=== PATIENT | female | born 1955 | race Hispanic/Latino ===

== ENCOUNTER 2018-02-06 11:54 | Inpatient (IN) | payer OTHER, MEDICARE ==
[2018-02-06] MEDS ORDERED: DUONEB *Not for PRN Use IH ONE (13:42)
[2018-02-06] MEDS ORDERED: MORPHINE IV ONE (13:43)
[2018-02-06] MEDS ORDERED: ZOFRAN IV ONE (13:43)
[2018-02-06] MEDS ORDERED: NACL 0.9% 1000 ML 1,000 ML IV ONE (13:43)
--- NOTE | 2018-02-06 13:46 | Emergency Department Report ---
ED General Adult HPI - General Chief complaint: Medical Clearance Stated complaint: DIFFICULTY BREATHING Time Seen by Provider: 02/06/18 12:34 Source: patient, EMS Mode of arrival: Stretcher Limitations: No Limitations - History of Present Illness Initial comments: This is a 62-year-old female that has recently been admitted to a hospital for alcohol detoxification. Subsequently she was sent to the [facility] facility ([email or web address]). She was sent here because she does not have oxygen. In addition she does not have a nebulizer machine. She has been on chronic supplemental oxygen. She has also had chronic nebulized treatment for her COPD. She complains of shortness of breath and wheezing. She also states that about a half an hour before she was transferred she developed epigastric pain. The epigastric pain is crampy and nonradiating. She states that she does have some nausea. She has a history of previous resection of the small and large bowel she states for blockage and polyps. She's had a previous hysterectomy. She's had no recent surgery. She's had no recent infection. -: Gradual, minutes(s), hour(s) Location: abdomen Radiation: non-radiation Quality: other (cramping) Consistency: intermittent Improves with: none Worsens with: none Associated Symptoms: denies other symptoms, nausea/vomiting (nausea no vomiting) , shortness of breath ((wheezing)). denies: confusion, chest pain, cough, diaphoresis, headaches, loss of appetite, malaise, rash, syncope, weakness Treatments Prior to Arrival: none - Related Data Allergies Allergy/AdvReac Type Severity Reaction Status Date / Time No Known Allergies Allergy Unverified 02/06/18 12:32 ED Review of Systems ROS: Stated complaint: DIFFICULTY BREATHING Other details as noted in HPI Constitutional: denies: chills, fever Eyes: denies: eye pain, eye discharge, vision change ENT: denies: ear pain, throat pain Respiratory: wheezing. denies: cough Cardiovascular: denies: chest pain, palpitations Endocrine: no symptoms reported Gastrointestinal: abdominal pain, nausea. denies: vomiting, diarrhea Genitourinary: denies: urgency, dysuria, discharge Musculoskeletal: denies: back pain, joint swelling, arthralgia Skin: denies: rash, lesions Neurological: denies: headache, weakness, paresthesias Psychiatric: denies: anxiety, depression Hematological/Lymphatic: denies: easy bleeding, easy bruising ED Past Medical Hx - Past Medical History Previous Medical History?: Yes Hx Psychiatric Treatment: (ETOH abuse) Hx COPD: Yes Additional medical history: pancreatitis - Surgical History Past Surgical History?: Yes Additional Surgical History: hysterectomy, colon - Social History Smoking Status: Former Smoker Substance Use Type: None ED Physical Exam - General Limitations: No Limitations General appearance: alert, in no apparent distress - Head Head exam: Present: atraumatic, normocephalic - Eye Eye exam: Present: normal appearance, PERRL, EOMI. Absent: scleral icterus - ENT ENT exam: Present: mucous membranes moist - Neck Neck exam: Present: normal inspection - Respiratory Respiratory exam: Present: wheezes (bilateral), prolonged expiratory, other ( work of breathing is normal). Absent: normal lung sounds bilaterally, respiratory distress, accessory muscle use - Cardiovascular Cardiovascular Exam: Present: regular rate, normal rhythm. Absent: systolic murmur, diastolic murmur, rubs, gallop - GI/Abdominal GI/Abdominal exam: Present: soft, tenderness (epigastric), normal bowel sounds. Absent: distended, guarding, rebound, rigid, organomegaly, mass, bruit, pulsatile mass, hernia - Extremities Exam Extremities exam: Present: normal inspection, normal capillary refill. Absent: calf tenderness - Back Exam Back exam: Present: normal inspection - Neurological Exam Neurological exam: Present: alert, oriented X3, CN II-XII intact. Absent: motor sensory deficit - Psychiatric Psychiatric exam: Present: normal affect, normal mood - Skin Skin exam: Present: warm, dry, intact, normal color. Absent: rash ED Course Vital Signs 02/06/18 02/06/18 02/06/18 12:12 12:18 14:20 Temperature 98.6 F Pulse Rate 95 H 72 Pulse Rate [ 89 Posterior] Respiratory 20 18 Rate Respiratory 16 Rate [Posterior ] Blood Pressure 145/108 Blood Pressure 146/108 [Right] O2 Sat by Pulse 92 95 Oximetry 02/06/18 14:41 Temperature Pulse Rate Pulse Rate [ 99 H Posterior] Respiratory Rate Respiratory 19 Rate [Posterior ] Blood Pressure Blood Pressure [Right] O2 Sat by Pulse Oximetry - Reevaluation(s) Reevaluation #1: The patient was found to have a PO2 under 60. There was a mildly elevated PCO2 of 46.9. She was placed on 2 L of oxygen by me. I found her on 4 L apparently placed by others. 2 L should suffice actually. We will check her pulse oximetry. She will receive a DuoNeb. I'll investigate her abdominal complaints further. She will likely require overnight admission to the hospitalist service for a COPD exacerbation. 02/06/18 14:31 02/06/18 14:33 Reevaluation #2: CT of the abdomen and pelvis double contrast protocol is still pending. The patient's abdominal exam was benign. Her labs are likewise benign. The patient will be admitted by Dr. Mayers to the hospitalist service for further evaluation. She was given a tablet placed on supplemental O2 for her COPD exacerbation and chronic hypercapnic respiratory failure. She is given Kayexalate for her hyperkalemia by Dr. Mayers 02/06/18 15:04 ED Medical Decision Making - Lab Data Result diagrams: 02/06/18 13:58 02/06/18 13:58 Laboratory Results - last 24 hr 02/06/18 02/06/18 13:25 13:58 WBC 4.0 L RBC 2.85 L Hgb 11.2 Hct 33.1 MCV 116 H MCH 39 H MCHC 34 RDW 16.7 H Plt Count 232 [place] % (Auto) [employer] POC ABG pH 7.392 POC ABG pCO2 46.9 H POC ABG pO2 59 L POC ABG HCO3 28.5 POC ABG Total CO2 30 POC ABG O2 Sat 90 POC ABG Base Excess 4 FiO2 28 Laboratory Results - last 24 hr 02/06/18 02/06/18 02/06/18 13:25 13:58 13:58 WBC 4.0 L RBC 2.85 L Hgb 11.2 Hct 33.1 MCV 116 H MCH 39 H MCHC 34 RDW 16.7 H Plt Count 232 [place] % (Auto) [employer] POC ABG pH 7.392 POC ABG pCO2 46.9 H POC ABG pO2 59 L POC ABG HCO3 28.5 POC ABG Total CO2 30 POC ABG O2 Sat 90 POC ABG Base Excess 4 FiO2 28 Sodium 135 L Potassium 5.3 H Chloride 97.7 L Carbon Dioxide 26 Anion Gap 17 BUN 9 Creatinine 0.6 L Estimated GFR > 60 BUN/Creatinine Ratio 15 Glucose 120 H Calcium 9.3 Total Bilirubin 0.30 ALT 14 Alkaline Phosphatase 64 Total Protein 7.0 Albumin 3.6 L Albumin/Globulin Ratio 1.1 Lipase 30 - Radiology Data Radiology results: pending Critical care attestation.: If time is entered above; I have spent that time in minutes in the direct care of this critically ill patient, excluding procedure time. ED Disposition Clinical Impression: COPD exacerbation, Hypoxia, Hyponatremia, Hyperkalemia Abdominal pain Qualifiers: Abdominal location: unspecified location Qualified Code(s): R10.9 - Unspecified abdominal pain Disposition: OP ADMIT IP TO THIS HOSP Is pt being admited?: Yes Does the pt Need Aspirin: No Condition: Stable Instructions: Chronic Obstructive Pulmonary Disease (ED) Referrals: PRIMARY CARE, [Primary Care Provider] - 3-5 Days Time of Disposition: 15:20
[2018-02-06 14:28] LABS: Hematocrit 33.1 % (30.3-42.9); Hemoglobin 11.2 gm/dl (10.1-14.3); Mean Corpuscular HGB Conc 34 % (30-34); Mean Corpuscular Hemoglobin 39 pg (28-32); Platelet Count 232 K/mm3 (140-440); Red Blood Count 2.85 M/mm3 (3.65-5.03); Red Cell Distribution Width 16.7 % (13.2-15.2)
[2018-02-06 14:29] LABS: Mean Corpuscular Volume 116 fl (79-97)
[2018-02-06 14:44] LABS: Alanine Aminotransferase 14 units/L (7-56); Albumin 3.6 g/dL (3.9-5); BUN/Creatinine Ratio 15; Blood Urea Nitrogen 9 mg/dL (7-17); Calcium 9.3 mg/dL (8.4-10.2); Hemolysis Index 74; Lipase 30 units/L (13-60)
[2018-02-06] MEDS ORDERED: KIONEX PO ONE (15:02)
--- NOTE | 2018-02-06 15:02 | History and Physical Report ---
History of Present Illness Chief complaint: I cant breathe History of present illness: 62 YO Female with ETOH Dependence, COPD, Chronic Respiratory Failure on Home Oxygen, ETOH Pancreatitis presents to ED for evaluation. Pt states that she has experienced shortness of breath for the past 1 day. Pt states that she ran out of oxygen, as well as her nebulizer medication. Pt was found to be in respiratory distress today by [facility] staff. EMS notified and patient transported to [facility] for further care and evaluation. Pt seen and evaluated in ED and found to have COPD exacerbaation, as well as Respiratory Failure. Pt also found to have a left lower lung nodule. Pt complains of crampy abdominal pain. Pt admitted to medical floor. Past History Past Medical History: COPD, other ( ETOH Dependence, COPD, Chronic Respiratory Failure on Home Oxygen, ETOH Pancreatitis) Past Surgical History: hysterectomy, bowel surgery Social history: , lives with family, alcohol abuse Family history: no significant family history (reviewed) Medications and Allergies Allergies Allergy/AdvReac Type Severity Reaction Status Date / Time No Known Allergies Allergy Unverified 02/06/18 12:32 Active Meds: Active Medications Sodium Chloride (Nacl 0.9% 1000 Ml) 1,000 mls @ 250 mls/hr IV ONCE ONE Stop: 02/06/18 17:42 Last Admin: 02/06/18 14:50 Dose: 250 mls/hr Review of Systems Constitutional: no weight loss, no weight gain, no fever, no chills, no sweats Ears, nose, mouth and throat: no ear pain, no ear discharge, no tinnitis, no decreased hearing, no nose pain, no nasal congestion, no nasal discharge Breasts: no change in shape, no swelling, no mass Cardiovascular: no chest pain, no orthopnea, no palpitations, no edema, no syncope Respiratory: shortness of breath, dyspnea on exertion, no cough, no cough with sputum Gastrointestinal: abdominal pain, no nausea, no vomiting, no diarrhea Genitourinary Female: no pelvic pain, no flank pain, no menorrhagia, no dysuria , no urinary frequency, no urgency Rectal: no pain, no incontinence, no bleeding Musculoskeletal: no neck stiffness, no neck pain, no shooting arm pain, no arm numbness/tingling, no low back pain Integumentary: no rash, no pruritis, no redness, no sores, no wounds, no jaundice Neurological: no transient paralysis, no paralysis, no weakness, no parathesias , no numbness, no tingling, no seizures Psychiatric: no anxiety, no memory loss, no change in sleep habits, no sleep disturbances, no insomnia, no hypersomnia Endocrine: no cold intolerance, no heat intolerance, no polyphagia, no excessive thirst, no polydipsia, no polyuria, no nocturia Hematologic/Lymphatic: no easy bruising, no easy bleeding, no lymphadenopathy, no lymphedema Allergic/Immunologic: no urticaria, no allergic rhinitis, no wheezing, no persistent infections, no anaphylaxis, no angioedema Exam - Constitutional Vitals: Temp Pulse Resp BP Pulse Ox 98.6 F 99 H 19 146/108 95 02/06/18 12:18 02/06/18 14:41 02/06/18 14:41 02/06/18 12:18 02/06/18 12:18 General appearance: Present: mild distress - EENT Eyes: Present: PERRL ENT: hearing intact, clear oral mucosa - Neck Neck: Present: supple, normal ROM - Respiratory Respiratory effort: normal Respiratory: bilateral: CTA - Cardiovascular Heart Sounds: Present: S1 & S2. Absent: rub, click - Extremities Extremities: pulses symmetrical, No edema Peripheral Pulses: within normal limits - Abdominal General gastrointestinal: Present: soft, non-tender, non-distended, normal bowel sounds Female genitourinary: Present: normal - Integumentary Integumentary: Present: clear, warm, dry - Musculoskeletal Musculoskeletal: gait normal, strength equal bilaterally - Psychiatric Psychiatric: appropriate mood/affect, intact judgment & insight - Neurologic Neurologic: CNII-XII intact, moves all extremities Results - Labs CBC & Chem 7: 02/06/18 13:58 02/06/18 13:58 Labs: Abnormal lab results 02/06/18 02/06/18 02/06/18 Range/Units 13:25 13:58 13:58 WBC 4.0 L (4.5-11.0) K/mm3 RBC 2.85 L (3.65-5.03) M/mm3 MCV 116 H (79-97) fl MCH 39 H (28-32) pg RDW 16.7 H (13.2-15.2) % POC ABG pCO2 46.9 H (35-45) POC ABG pO2 59 L (80-105) Sodium 135 L (137-145) mmol/L Potassium 5.3 H (3.6-5.0) mmol/L Chloride 97.7 L (98-107) mmol/L Creatinine 0.6 L (0.7-1.2) mg/dL Glucose 120 H (65-100) mg/dL Albumin 3.6 L (3.9-5) g/dL Assessment and Plan - Patient Problems (1) Respiratory failure Current Visit: Yes Status: Acute Qualifiers: Chronicity: acute on chronic Respiratory failure complication: hypoxia Qualified Code(s): J96.21 - Acute and chronic respiratory failure with hypoxia Plan to address problem: Supplemental oxygen, ABG, nebulizer therapy, Chest x ray, NIPPV as clinically indicated. (2) COPD exacerbation Current Visit: Yes Status: Acute Plan to address problem: Supplemental oxygen, nebulizer therapy, IV steroids, IV antibiotics, NIPPV as clinically indicated, chest x ray (3) Lung nodule Current Visit: Yes Status: Acute Plan to address problem: outpatient pulmonary F/u, (4) EtOH dependence Current Visit: Yes Status: Acute Plan to address problem: thiamine, folic acid, multivitamin (5) Abdominal pain Current Visit: Yes Status: Acute Qualifiers: Abdominal location: unspecified location Qualified Code(s): R10.9 - Unspecified abdominal pain Plan to address problem: CT Abdomen Pelvis, Ultrasound abdomen, supportive care, pain control, serial abdominal exam. (6) DVT prophylaxis Current Visit: Yes Status: Acute Plan to address problem: scd to ble while in bed.
[2018-02-06 15:11] LABS: Basophils % (Manual) 0 % (0.0-1.8); Total Cells Counted 100
[2018-02-06 15:12] LABS: Anisocytosis 1+; Macrocytosis 1+; Stomatocytes 1+
[2018-02-06 15:13] LABS: Platelet Estimate Cons
--- NOTE | 2018-02-06 15:26 | XRay Report ---
AP CHEST: HISTORY: Difficulty in breathing The lungs are mildly hyperinflated. Mild pulmonary venous congestion is suspected. The lungs are clear otherwise. No pleural effusion or pneumothorax. Heart size is within normal limits. The bony structures are intact. IMPRESSION: Mild hyperinflation. Mild pulmonary venous congestion.
--- NOTE | 2018-02-06 17:47 | Cat Scan Report ---
FINAL REPORT EXAM: CT ABDOMEN PELVIS W CON HISTORY: abd pain h/o prior surg for bowel obstruct/polys TECHNIQUE: Following oral administration of GI contrast and administration of 100 cc of Omnipaque axial helical imaging was performed through the abdomen and pelvis with sagittal and coronal reformatted images obtained. Delayed images of the abdomen and pelvis were also performed. Comparison: None FINDINGS: Visualization of fine detail in portions of the abdomen and pelvis is somewhat limited by motion artifact. The study remains of diagnostic quality. There is an approximately the 6.9 millimeter pleural-based nodular density in the left lung base. Heart appears to be normal size. The liver, spleen, pancreas, kidneys and adrenal glands are unremarkable in appearance. The gallbladder is moderately distended and appears to contain gallstones in the dependent portion of the gallbladder. There is a bowel anastomosis in the sigmoid colon. There is colonic diverticulosis without definite radiographic evidence of diverticulitis. The appendix is not definitively visualized. There is no evidence of inflammatory change in the expected location of the appendix. GI contrast is demonstrated to transit through the small bowel and colon to the rectum. There is no evidence of pneumoperitoneum or free fluid. There are mildly prominent mesenteric, bilateral iliac chain and periaortic lymph nodes. None are pathologic by CT size criteria. The largest appears to measure approximately 11 millimeters in size. These are nonspecific in appearance but are most likely inflammatory in nature. The abdominal aorta is upper limits of normal caliber. The urinary bladder is moderately distended and unremarkable in appearance. The uterus is absent. The bony structures are notable for the appearance of a large central disc protrusion/herniation at the L4-L5 level. Additional note is made of perineural cysts at in the sacral spine. IMPRESSION: 1. No evidence of bowel obstruction. 2. No evidence of an acute intra-abdominal process. 3. Colonic diverticulosis without definite radiographic evidence of diverticulitis. 4. Bowel anastomosis sigmoid colon. 5. Mildly prominent mesenteric, bilateral iliac chain and periaortic lymph nodes. These are nonspecific in appearance but are most likely inflammatory in nature. Comparison with previous CT abdomen and pelvis would be helpful to evaluate for the static or dynamic nature of this finding. 6. Probable gallstones. 7. Status post hysterectomy. 8. Appearance of a large central disc protrusion/herniation at the L4-L5 level and perineural cysts in the sacral spine. 9. Approximately 6.9 millimeter pleural-based nodular density left lung base. Comparison with previous CT imaging studies is recommended. If no prior studies are available for comparison, follow-up utilizing Fleischner criteria is recommended.
[2018-02-06 18:07] LABS: Bilirubin,Urine NEG (Negative); Blood,Urine NEG (Negative); Color,Urine Yellow (Yellow); Mucus,Urine FEW /HPF; Protein,Urine <15 mg/dL mg/dL (Negative); Urobilinogen,Urine < 2.0 mg/dL (<2.0); WBC,Urine < 1.0 /HPF (0.0-6.0)
[2018-02-06] MEDS ORDERED: ZOFRAN IV PRN (18:34)
[2018-02-06] MEDS ORDERED: SODIUM CHLORIDE FLUSH SYRINGE 10 ML IV PRN (18:34)
[2018-02-06] MEDS: TYLENOL PO PRN (19:38)
[2018-02-06] MEDS: ZITHROMAX 500 MG in NACL 0.9% 250ML 250 ML IV SCH (19:39)
--- NOTE | 2018-02-06 22:22 | Ultrasound Report ---
FINAL REPORT EXAM: US ABDOMEN COMPLETE HISTORY: ab pain TECHNIQUE: Grayscale and color-flow imaging of the abdomen was performed. Comparison: CT abdomen and pelvis also performed today FINDINGS: Liver: Increased echogenicity suggestive of fatty infiltration/steatosis. There is no demonstration of a focal mass. Pancreas: Not well visualized due to artifact. Gallbladder: Mildly distended which limits evaluation. Increased echogenicity in the dependent portion the gallbladder may represent sludge. The gallbladder wall is normal thickness (2.2 millimeters). There is no demonstration of pericholecystic fluid. Common bile duct: Dilated (9 millimeters). Spleen: Normal size and echogenicity. Right kidney: Measures 10 centimeters in the maximal craniocaudal dimension and is unremarkable in appearance. Left kidney: Measures 9 centimeters in the maximal craniocaudal dimension and is unremarkable in appearance. No free fluid is demonstrated in the upper abdomen. IMPRESSION: 1. Increased echogenicity of the liver suggestive of fatty infiltration/steatosis. 2. Increased echogenicity in the dependent portion the gallbladder which may represent sludge. No definite ultrasound evidence of acute cholecystitis. 3. Dilated common bile duct.
[2018-02-06] MEDS: AMBIEN PO PRN (23:09)
[2018-02-06] MEDS: SODIUM CHLORIDE FLUSH SYRINGE 10 ML IV SCH (23:10)
[2018-02-07] MEDS ORDERED: KIONEX PO ONE (01:00)
[2018-02-07] MEDS: SODIUM CHLORIDE FLUSH SYRINGE 10 ML IV SCH ×2 (10:05→22:47)
[2018-02-07] MEDS: ZITHROMAX 500 MG in NACL 0.9% 250ML 250 ML IV SCH (10:06)
[2018-02-07] MEDS: PROVENTIL IH PRN ×2 (10:38→15:31)
[2018-02-07 14:20] LABS: BUN/Creatinine Ratio 14; Blood Urea Nitrogen 10 mg/dL (7-17); Calcium 9.1 mg/dL (8.4-10.2); Hemolysis Index 12
--- NOTE | 2018-02-07 15:22 | Progress Note ---
Assessment and Plan /Acute hypoxic and hypercapnic Respiratory failure due to COPD exacerbation cont Supplemental oxygen, ABG, nebulizer therapy, NIPPV as clinically indicated. / COPD exacerbation Supplemental oxygen, nebulizer therapy, IV steroids, IV antibiotics, NIPPV as clinically indicated, chest x ray /Lung nodule outpatient pulmonary F/u, / EtOH dependence thiamine, folic acid, multivitamin watch for withdrawl / Abdominal pain Likely due to hepatic congestion with gall bladder sludge, but pain now resolved monitor LFT, outpt follow up / DVT prophylaxis scd to ble while in bed. Radiological data: US abdomen: 1. Increased echogenicity of the liver suggestive of fatty infiltration/ steatosis. 2. Increased echogenicity in the dependent portion the gallbladder which may represent sludge. No definite ultrasound evidence of acute cholecystitis. 3. Dilated common bile duct. CT abdomen/pelvis: 1. No evidence of bowel obstruction. 2. No evidence of an acute intra-abdominal process. 3. Colonic diverticulosis without definite radiographic evidence of diverticulitis. 4. Bowel anastomosis sigmoid colon. 5. Mildly prominent mesenteric, bilateral iliac chain and periaortic lymph nodes. These are nonspecific in appearance but are most likely inflammatory in nature. Comparison with previous CT abdomen and pelvis would be helpful to evaluate for the static or dynamic nature of this finding. 6. Probable gallstones. 7. Status post hysterectomy. 8. Appearance of a large central disc protrusion/herniation at the L4-L5 level and perineural cysts in the sacral spine. 9. Approximately 6.9 millimeter pleural-based nodular density left lung base. Comparison with previous CT imaging studies is recommended. If no prior studies are available for comparison, follow-up utilizing Fleischner criteria is recommended. Chest XR: Mild hyperinflation. Mild pulmonary venous congestion. Subjective Date of service: 02/07/18 Interval history: Pt seen and examined cont c/o SOb and cough no chest pain Objective - Constitutional Vitals: Vital Signs - 12hr 02/07/18 02/07/18 02/07/18 04:51 08:38 10:00 Temperature 97.8 F Pulse Rate 96 H Respiratory 20 24 Rate Blood Pressure 148/92 O2 Sat by Pulse 85 92 Oximetry 02/07/18 12:24 Temperature 97.8 F Pulse Rate 102 H Respiratory 23 Rate Blood Pressure 145/88 O2 Sat by Pulse 86 Oximetry General appearance: Present: no acute distress, well-nourished - EENT Eyes: PERRL, EOM intact ENT: hearing intact, clear oral mucosa Ears: bilateral: normal - Neck Neck: supple, normal ROM - Respiratory Respiratory effort: normal Respiratory: bilateral: diminished, wheezing - Breasts Breasts: deferred - Cardiovascular Rhythm: regular Heart Sounds: Present: S1 & S2. Absent: gallop, rub Extremities: pulses intact, No edema, normal color, Full ROM - Gastrointestinal General gastrointestinal: Present: soft, non-tender, non-distended, normal bowel sounds - Genitourinary Female genitourinary: deferred - Integumentary Integumentary: clear, warm, dry - Musculoskeletal Musculoskeletal: 1, strength equal bilaterally - Neurologic Neurologic: moves all extremities - Psychiatric Psychiatric: memory intact, appropriate mood/affect, intact judgment & insight - Labs CBC & Chem 7: 02/06/18 13:58 02/08/18 05:42 Labs: Abnormal lab results 02/07/18 Range/Units 13:41 Chloride 95.1 L (98-107) mmol/L Glucose 164 H (65-100) mg/dL - Imaging and cardiology Chest x-ray: report reviewed
[2018-02-07] MEDS: AMBIEN PO PRN (21:47)
[2018-02-07] MEDS: DUONEB *Not for PRN Use IH SCH (22:30)
[2018-02-07] MEDS: ZITHROMAX PO SCH (22:46)
[2018-02-08] MEDS: DUONEB *Not for PRN Use IH SCH ×4 (02:37→20:29)
[2018-02-08] MEDS ORDERED: APRESOLINE IV PRN (06:25)
[2018-02-08 07:07] LABS: BUN/Creatinine Ratio 17; Blood Urea Nitrogen 10 mg/dL (7-17); Calcium 9.5 mg/dL (8.4-10.2); Hemolysis Index 1
[2018-02-08] MEDS ORDERED: ZESTRIL PO SCH (10:00)
[2018-02-08] MEDS: TYLENOL PO PRN ×2 (11:24→15:41)
[2018-02-08] MEDS: APRESOLINE PO SCH ×3 (11:26→22:19)
[2018-02-08] MEDS: NORVASC PO SCH (11:27)
[2018-02-08] MEDS: SODIUM CHLORIDE FLUSH SYRINGE 10 ML IV SCH ×2 (11:27→22:21)
[2018-02-08] MEDS: ZITHROMAX PO SCH (22:19)
[2018-02-08] MEDS: AMBIEN PO PRN (22:19)
[2018-02-09] MEDS: APRESOLINE PO SCH ×4 (05:51→22:37)
[2018-02-09] MEDS: DUONEB *Not for PRN Use IH SCH ×3 (09:00→20:40)
[2018-02-09] MEDS: NORVASC PO SCH (10:51)
[2018-02-09] MEDS: SODIUM CHLORIDE FLUSH SYRINGE 10 ML IV SCH ×2 (10:53→22:38)
[2018-02-09] MEDS ORDERED: APRESOLINE IV PRN (13:27)
--- NOTE | 2018-02-09 14:01 | Progress Note ---
Assessment and Plan /Acute hypoxic and hypercapnic Respiratory failure due to COPD exacerbation cont Supplemental oxygen, ABG, nebulizer therapy, NIPPV as clinically indicated. / COPD exacerbation Supplemental oxygen, nebulizer therapy, IV steroids, IV antibiotics, NIPPV as clinically indicated, will taper steroid as tolerated /Lung nodule outpatient pulmonary F/u, / EtOH dependence thiamine, folic acid, multivitamin watch for withdrawl / Abdominal pain Likely due to hepatic congestion with gall bladder sludge, but pain now resolved monitor LFT, outpt follow up / DVT prophylaxis scd to ble while in bed. Radiological data: US abdomen: 1. Increased echogenicity of the liver suggestive of fatty infiltration/ steatosis. 2. Increased echogenicity in the dependent portion the gallbladder which may represent sludge. No definite ultrasound evidence of acute cholecystitis. 3. Dilated common bile duct. CT abdomen/pelvis: 1. No evidence of bowel obstruction. 2. No evidence of an acute intra-abdominal process. 3. Colonic diverticulosis without definite radiographic evidence of diverticulitis. 4. Bowel anastomosis sigmoid colon. 5. Mildly prominent mesenteric, bilateral iliac chain and periaortic lymph nodes. These are nonspecific in appearance but are most likely inflammatory in nature. Comparison with previous CT abdomen and pelvis would be helpful to evaluate for the static or dynamic nature of this finding. 6. Probable gallstones. 7. Status post hysterectomy. 8. Appearance of a large central disc protrusion/herniation at the L4-L5 level and perineural cysts in the sacral spine. 9. Approximately 6.9 millimeter pleural-based nodular density left lung base. Comparison with previous CT imaging studies is recommended. If no prior studies are available for comparison, follow-up utilizing Fleischner criteria is recommended. Chest XR: Mild hyperinflation. Mild pulmonary venous congestion. Subjective Date of service: 02/08/18 Interval history: Pt seen and examined cont c/o SOb and cough, but improved no chest pain Objective - Constitutional Vitals: Vital Signs - 12hr 02/09/18 02/09/18 02/09/18 05:29 05:51 09:00 Temperature 97.5 F L Pulse Rate 93 H 76 Pulse Rate [ 93 H Anterior Bilateral Throughout] Respiratory 22 Rate Respiratory 18 Rate [Anterior Bilateral Throughout] Blood Pressure 156/95 140/80 O2 Sat by Pulse 94 95 Oximetry 02/09/18 02/09/18 02/09/18 09:10 10:51 11:56 Temperature 97.5 F L Pulse Rate 95 H 88 Pulse Rate [ 95 H Anterior Bilateral Throughout] Respiratory 22 Rate Respiratory 18 Rate [Anterior Bilateral Throughout] Blood Pressure 140/80 174/99 O2 Sat by Pulse 90 Oximetry 02/09/18 02/09/18 02/09/18 11:57 13:29 13:31 Temperature 97.5 F L Pulse Rate 91 H 107 H 107 H Pulse Rate [ Anterior Bilateral Throughout] Respiratory 22 Rate Respiratory Rate [Anterior Bilateral Throughout] Blood Pressure 170/90 170/90 O2 Sat by Pulse 93 Oximetry - Labs CBC & Chem 7: 02/06/18 13:58 02/08/18 05:42
--- NOTE | 2018-02-09 14:17 | Progress Note ---
Assessment and Plan /Acute hypoxic and hypercapnic Respiratory failure due to COPD exacerbation cont Supplemental oxygen, ABG, nebulizer therapy, NIPPV as clinically indicated. / COPD exacerbation Supplemental oxygen, nebulizer therapy, IV steroids, IV antibiotics, NIPPV as clinically indicated, will taper steroid as tolerated /Lung nodule outpatient pulmonary F/u, / EtOH dependence thiamine, folic acid, multivitamin watch for withdrawl / Abdominal pain Likely due to hepatic congestion with gall bladder sludge, but pain now resolved monitor LFT, outpt follow up /hyperkalemia, resolved / DVT prophylaxis scd to ble while in bed. Radiological data: US abdomen: 1. Increased echogenicity of the liver suggestive of fatty infiltration/ steatosis. 2. Increased echogenicity in the dependent portion the gallbladder which may represent sludge. No definite ultrasound evidence of acute cholecystitis. 3. Dilated common bile duct. CT abdomen/pelvis: 1. No evidence of bowel obstruction. 2. No evidence of an acute intra-abdominal process. 3. Colonic diverticulosis without definite radiographic evidence of diverticulitis. 4. Bowel anastomosis sigmoid colon. 5. Mildly prominent mesenteric, bilateral iliac chain and periaortic lymph nodes. These are nonspecific in appearance but are most likely inflammatory in nature. Comparison with previous CT abdomen and pelvis would be helpful to evaluate for the static or dynamic nature of this finding. 6. Probable gallstones. 7. Status post hysterectomy. 8. Appearance of a large central disc protrusion/herniation at the L4-L5 level and perineural cysts in the sacral spine. 9. Approximately 6.9 millimeter pleural-based nodular density left lung base. Comparison with previous CT imaging studies is recommended. If no prior studies are available for comparison, follow-up utilizing Fleischner criteria is recommended. Chest XR: Mild hyperinflation. Mild pulmonary venous congestion. Subjective Date of service: 02/09/18 Objective - Constitutional Vitals: Vital Signs - 12hr 02/09/18 02/09/18 02/09/18 05:29 05:51 09:00 Temperature 97.5 F L Pulse Rate 93 H 76 Pulse Rate [ 93 H Anterior Bilateral Throughout] Respiratory 22 Rate Respiratory 18 Rate [Anterior Bilateral Throughout] Blood Pressure 156/95 140/80 O2 Sat by Pulse 94 95 Oximetry 02/09/18 02/09/18 02/09/18 09:10 10:51 11:56 Temperature 97.5 F L Pulse Rate 95 H 88 Pulse Rate [ 95 H Anterior Bilateral Throughout] Respiratory 22 Rate Respiratory 18 Rate [Anterior Bilateral Throughout] Blood Pressure 140/80 174/99 O2 Sat by Pulse 90 Oximetry 02/09/18 02/09/18 02/09/18 11:57 13:29 13:31 Temperature 97.5 F L Pulse Rate 91 H 107 H 107 H Pulse Rate [ Anterior Bilateral Throughout] Respiratory 22 Rate Respiratory Rate [Anterior Bilateral Throughout] Blood Pressure 170/90 170/90 O2 Sat by Pulse 93 Oximetry - Labs CBC & Chem 7: 02/06/18 13:58 02/08/18 05:42
--- NOTE | 2018-02-09 15:00 | Discharge Summary ---
Providers - Providers Date of Admission: 02/06/18 18:34 Date of discharge: 02/10/18 Attending physician: DIMA CORONADO Primary care physician: CHANGE MANAGEMENT DIRECTOR Hospitalization Condition: Stable Hospital course: discharge diagnosis and management: /Acute hypoxic and hypercapnic Respiratory failure due to COPD exacerbation cont Supplemental oxygen, ABG, nebulizer therapy, NIPPV as clinically indicated. / COPD exacerbation Supplemental oxygen, nebulizer therapy, IV steroids, IV antibiotics, NIPPV as clinically indicated, will taper steroid as tolerated /Lung nodule outpatient pulmonary F/u, / EtOH dependence thiamine, folic acid, multivitamin watch for withdrawl / Abdominal pain Likely due to hepatic congestion with gall bladder sludge, but pain now resolved monitor LFT, outpt follow up / DVT prophylaxis scd to ble while in bed. Radiological data: US abdomen: 1. Increased echogenicity of the liver suggestive of fatty infiltration/ steatosis. 2. Increased echogenicity in the dependent portion the gallbladder which may represent sludge. No definite ultrasound evidence of acute cholecystitis. 3. Dilated common bile duct. CT abdomen/pelvis: 1. No evidence of bowel obstruction. 2. No evidence of an acute intra-abdominal process. 3. Colonic diverticulosis without definite radiographic evidence of diverticulitis. 4. Bowel anastomosis sigmoid colon. 5. Mildly prominent mesenteric, bilateral iliac chain and periaortic lymph nodes. These are nonspecific in appearance but are most likely inflammatory in nature. Comparison with previous CT abdomen and pelvis would be helpful to evaluate for the static or dynamic nature of this finding. 6. Probable gallstones. 7. Status post hysterectomy. 8. Appearance of a large central disc protrusion/herniation at the L4-L5 level and perineural cysts in the sacral spine. 9. Approximately 6.9 millimeter pleural-based nodular density left lung base. Comparison with previous CT imaging studies is recommended. If no prior studies are available for comparison, follow-up utilizing Fleischner criteria is recommended. Chest XR: Mild hyperinflation. Mild pulmonary venous congestion. Disposition: DC-01 TO HOME OR SELFCARE Time spent for discharge: 34 minutes Core Measure Documentation - Palliative Care Palliative Care/ Comfort Measures: Not Applicable - Core Measures Any of the following diagnoses?: none Exam - Physical Exam Narrative exam: General appearance: Present: no acute distress, well-nourished - EENT Eyes: PERRL, EOM intact ENT: hearing intact, clear oral mucosa Ears: bilateral: normal - Neck Neck: supple, normal ROM - Respiratory Respiratory effort: normal Respiratory: bilateral: diminished, - Breasts Breasts: deferred - Cardiovascular Rhythm: regular Heart Sounds: Present: S1 & S2. Absent: gallop, rub Extremities: pulses intact, No edema, normal color, Full ROM - Gastrointestinal General gastrointestinal: Present: soft, non-tender, non-distended, normal bowel sounds - Genitourinary Female genitourinary: deferred - Integumentary Integumentary: clear, warm, dry - Musculoskeletal Musculoskeletal: 1, strength equal bilaterally - Neurologic Neurologic: moves all extremities - Psychiatric Psychiatric: memory intact, appropriate mood/affect, intact judgment & insight - Constitutional Vitals: Temp Pulse Resp BP Pulse Ox 97.5 F L 107 H 22 170/90 93 02/09/18 11:57 02/09/18 13:31 02/09/18 11:57 02/09/18 13:31 02/09/18 11:57 Plan Activity: advance as tolerated Weight Bearing Status: Non-Weight Bearing Diet: low fat, low salt Durable Medical Equipment Needed Upon Discharge: Wheelchair Follow up with: PRIMARY CARE, [Primary Care Provider] - 3-5 Days Prescriptions: Azithromycin [Zithromax TAB] 500 mg PO QHS #3 tablet amLODIPine [Norvasc] 10 mg PO QDAY #30 tablet Aspirin EC [Aspirin Enteric Coated TAB] 81 mg PO QDAY #30 tablet. Fluticasone/Salmeterol [Advair 250-50 Diskus] 1 each IH BID 30 Days blst.w.dev hydrALAZINE [Apresoline TAB] 50 mg PO Q8HR #90 tablet Ipratropium/Albuterol Sulfate [DUONEB *Not for PRN Use*] 1 ampul IH TIDRT 30 Days ampul.neb
[2018-02-09] MEDS: ZITHROMAX PO SCH (22:33)
[2018-02-09] MEDS: AMBIEN PO PRN (22:33)
[2018-02-10] MEDS: APRESOLINE PO SCH (06:05)
[2018-02-10] MEDS: DUONEB *Not for PRN Use IH SCH ×3 (07:55→14:03)
[2018-02-10] MEDS: NORVASC PO SCH (11:06)
[2018-02-10 11:07] VITALS: BP 135/78
[2018-02-10] MEDS: SODIUM CHLORIDE FLUSH SYRINGE 10 ML IV SCH (11:07)
--- NOTE | 2018-02-10 12:35 | Progress Note ---
Assessment and Plan /Acute hypoxic and hypercapnic Respiratory failure due to COPD exacerbation cont Supplemental oxygen, ABG, nebulizer therapy, NIPPV as clinically indicated. / COPD exacerbation Supplemental oxygen, nebulizer therapy, IV steroids, IV antibiotics, NIPPV as clinically indicated, will taper steroid as tolerated /Lung nodule outpatient pulmonary F/u, / EtOH dependence thiamine, folic acid, multivitamin watch for withdrawl / Abdominal pain Likely due to hepatic congestion with gall bladder sludge, but pain now resolved monitor LFT, outpt follow up / DVT prophylaxis scd to ble while in bed. Disposition: after home o2 arrangement Radiological data: US abdomen: 1. Increased echogenicity of the liver suggestive of fatty infiltration/ steatosis. 2. Increased echogenicity in the dependent portion the gallbladder which may represent sludge. No definite ultrasound evidence of acute cholecystitis. 3. Dilated common bile duct. CT abdomen/pelvis: 1. No evidence of bowel obstruction. 2. No evidence of an acute intra-abdominal process. 3. Colonic diverticulosis without definite radiographic evidence of diverticulitis. 4. Bowel anastomosis sigmoid colon. 5. Mildly prominent mesenteric, bilateral iliac chain and periaortic lymph nodes. These are nonspecific in appearance but are most likely inflammatory in nature. Comparison with previous CT abdomen and pelvis would be helpful to evaluate for the static or dynamic nature of this finding. 6. Probable gallstones. 7. Status post hysterectomy. 8. Appearance of a large central disc protrusion/herniation at the L4-L5 level and perineural cysts in the sacral spine. 9. Approximately 6.9 millimeter pleural-based nodular density left lung base. Comparison with previous CT imaging studies is recommended. If no prior studies are available for comparison, follow-up utilizing Fleischner criteria is recommended. Chest XR: Mild hyperinflation. Mild pulmonary venous congestion. Physical exam: General appearance: Present: no acute distress, well-nourished - EENT Eyes: PERRL, EOM intact ENT: hearing intact, clear oral mucosa Ears: bilateral: normal - Neck Neck: supple, normal ROM - Respiratory Respiratory effort: normal Respiratory: bilateral: diminished, wheezing - Breasts Breasts: deferred - Cardiovascular Rhythm: regular Heart Sounds: Present: S1 & S2. Absent: gallop, rub Extremities: pulses intact, No edema, normal color, Full ROM - Gastrointestinal General gastrointestinal: Present: soft, non-tender, non-distended, normal bowel sounds - Genitourinary Female genitourinary: deferred - Integumentary Integumentary: clear, warm, dry - Musculoskeletal Musculoskeletal: 1, strength equal bilaterally - Neurologic Neurologic: moves all extremities - Psychiatric Psychiatric: memory intact, appropriate mood/affect, intact judgment & insight Subjective Date of service: 02/09/18 Interval history: Pt seen and examined SOb improved, now at baseline no chest pain she was planned to d/c home today, family members bought O2 tank but that was empty Objective - Constitutional Vitals: Vital Signs - 12hr 02/10/18 02/10/18 02/10/18 05:13 06:05 07:55 Temperature 97.7 F Pulse Rate 90 80 Pulse Rate [ 84 Anterior Bilateral Throughout] Respiratory 22 Rate Respiratory 17 Rate [Anterior Bilateral Throughout] Blood Pressure 141/86 150/88 O2 Sat by Pulse 88 Oximetry 02/10/18 02/10/18 02/10/18 07:56 07:57 11:06 Temperature Pulse Rate 91 H Pulse Rate [ 85 Anterior Bilateral Throughout] Respiratory Rate Respiratory 18 Rate [Anterior Bilateral Throughout] Blood Pressure 135/78 O2 Sat by Pulse 92 Oximetry - Labs CBC & Chem 7: 02/06/18 13:58 02/08/18 05:42
== END 2018-02-10 14:06 | disposition home or self-care (01) | DRG 189 ==
LOC: ED 11:54 → 3A 18:34
PROVIDERS: ADMIT Internal Medicine; ATTEND Internal Medicine
PROC: 4A033R1 Measurement of Arterial Saturation, Peripheral, Percutaneous Approach (ICD-10-PCS; principal; 2018-02-06)
DX: J96.21 Acute and chronic respiratory failure with hypoxia (principal); J44.1 Chronic obstructive pulmonary disease with (acute) exacerbation; J96.22 Acute and chronic respiratory failure with hypercapnia; R91.1 Solitary pulmonary nodule; E87.1 Hypo-osmolality and hyponatremia; E87.5 Hyperkalemia; F10.20 Alcohol dependence, uncomplicated; K76.1 Chronic passive congestion of liver; Z90.710 Acquired absence of both cervix and uterus
CPT/HCPCS: 36415; 71045; 74177; 76700; 80048; 80053; 81001; 82803; 83690; 85007; 85025; 93005; 93010; 94640; 94760; 96361; 96365; 96375; 99406; J0360; J0456; J2270; J2405; J2920; J2930; J7030; J7050; Q9967